=== PATIENT | female | born 1995 | race Hispanic/Latino ===

== ENCOUNTER 2021-07-13 08:12 | Outpatient (CLI) | payer OTHER ==
[2021-07-13 09:44] LABS: SARS-CoV-2 NAA Rapid Test Not Detected (NotDetected)
== END 2021-07-13 08:13 | disposition home or self-care (01) ==
LOC: CSHLAB 08:12
PROVIDERS: ATTEND Family Medicine
DX: Z20.822 Contact with and (suspected) exposure to COVID-19 (principal)
CPT/HCPCS: U0002

== ENCOUNTER 2021-07-14 14:21 | Inpatient (IN) | payer OTHER ==
[2021-07-16] MEDS ORDERED: Bupivacaine 0.25% HCL 30 ML VIAL ONE (07:00)
[2021-07-16] MEDS: Lactated Ringer's 1,000 ML IV SCH (21:40)
[2021-07-16] MEDS ORDERED: Misoprostol 100 MCG TAB ONE (22:13)
[2021-07-16] MEDS ORDERED: Penicillin G Potassium 5 MILL.UNITS VIAL ONE (22:13)
[2021-07-16 22:14] VITALS: BMI 32.5
[2021-07-16] MEDS ORDERED: HYDROcodone/Acetaminophen 5/325 mg Tablet PO PRN (22:18)
[2021-07-16] MEDS ORDERED: Ondansetron PF 4 MG/2 ML Vial IVP PRN (22:18)
[2021-07-16] MEDS ORDERED: NS w/ Oxytocin 30 units 500 ML IV SCH ×2 (22:18)
[2021-07-16] MEDS ORDERED: Carboprost 250 MCG/ML AMP IM PRN (22:18)
[2021-07-16] MEDS ORDERED: Promethazine HCl 25 MG/ML VIAL IM PRN (22:18)
[2021-07-16] MEDS ORDERED: Misoprostol 200 MCG TAB PR PRN (22:18)
[2021-07-16] MEDS ORDERED: Lidocaine 1% (PF) 30 ML VIAL SC PRN (22:18)
[2021-07-16] MEDS ORDERED: Butorphanol Tartrate 1 MG/ML VIAL SLOW IVP PRN (22:18)
[2021-07-16] MEDS ORDERED: Ibuprofen 800 MG TAB PO PRN (22:18)
[2021-07-16] MEDS ORDERED: hydrALAZINE 20 MG/ML VIAL SLOW IVP PRN (22:18)
[2021-07-16] MEDS ORDERED: Acetaminophen 500 MG TAB PO PRN (22:18)
[2021-07-16] MEDS ORDERED: Diphenoxylate HCl/Atropine Tablet PO PRN (22:18)
[2021-07-16] MEDS ORDERED: Methylergonovine 0.2 MG/ML VIAL IM PRN (22:18)
[2021-07-16] MEDS ORDERED: NS w/ Oxytocin 30 units 500 ML IVPB SCH (22:18)
[2021-07-16 22:48] LABS: Hemoglobin 11.5 g/dL (12.0-15.5); Mean Corpuscular HGB CONC 33.5 g/dL (32.0-36.0); Mean Corpuscular Hemoglobin 28.8 pg (27.0-33.0); Platelet Count 226 10x3/uL (150-450); Red Blood Cell (RBC) Count 3.99 10x6/uL (3.90-5.03); White Blood Cell (WBC) Count 8.2 10x3/uL (3.5-10.5)
[2021-07-16 23:19] LABS: Hep B Surf Ag Non-Reactive S/CO (NonReactive); Syphilis Antibody Nonreactive (Nonreactive); Syphilis Antibody Index 0.05 S/CO (<1.00 Non-Reactive)
[2021-07-16 23:30] LABS: HBSAg Index 0.13 S/CO (0-0.99)
[2021-07-17] MEDS ORDERED: Penicillin G Potassium 5 MILL.UNITS in Sodium Chloride 0.9% 100 ML IVPB SCH
[2021-07-17] MEDS: Misoprostol 100 MCG TAB VAG SCH ×4 (01:32→08:15)
[2021-07-17] MEDS: Penicillin G 2.5 MILL.units 2.5 MILL.UNITS in Premix Bag 1 BAG IVPB SCH ×5 (03:40→20:18)
[2021-07-17] MEDS ORDERED: Fentanyl 2 mcg/Bup 0.1% Cadd 100 ML ONE (08:02)
[2021-07-17] MEDS: Lactated Ringer's 1,000 ML IV SCH ×3 (08:16→22:38)
[2021-07-17] MEDS ORDERED: Fentanyl 100 MCG/2 ML VIAL ONE (08:50)
[2021-07-17] MEDS ORDERED: Dextrose 5%-Lactated Ringers 1,000 ML IV SCH (09:00)
[2021-07-17] MEDS ORDERED: Hydrocerin (Eucerin) Cream 120 gm Jar TOP PRN (09:21)
[2021-07-17] MEDS ORDERED: Acetaminophen 325 MG TAB PO PRN (09:21)
[2021-07-17] MEDS ORDERED: Ondansetron PF 4 MG/2 ML Vial IVP PRN (09:21)
[2021-07-17] MEDS ORDERED: ePHEDrine Sulfate 50 MG/10 ML VIAL SLOW IVP PRN (09:21)
[2021-07-17] MEDS ORDERED: Promethazine HCl 25 MG/ML VIAL IM PRN (09:21)
[2021-07-17] MEDS ORDERED: diphenhydrAMINE 50 MG/ML VIAL IVP PRN (09:21)
[2021-07-17] MEDS ORDERED: Lactated Ringer's 500 ML IV PRN (09:21)
[2021-07-17] MEDS ORDERED: Naloxone HCl 0.4 mg/ml Vial IVP PRN ×2 (09:21)
[2021-07-17] MEDS ORDERED: Communication Order-Pharmacy FS PRN (09:30)
[2021-07-17] MEDS ORDERED: Fentanyl 2 mcg/Bupivacaine 0.1% Cassette 100 ML EPIDURAL SCH (09:30)
[2021-07-18] MEDS: Penicillin G 2.5 MILL.units 2.5 MILL.UNITS in Premix Bag 1 BAG IVPB SCH (01:14)
[2021-07-18] MEDS ORDERED: Ondansetron PF 4 MG/2 ML Vial IVP PRN (01:15)
[2021-07-18] MEDS ORDERED: Promethazine HCl 25 MG/ML VIAL IM PRN (01:15)
[2021-07-18] MEDS ORDERED: Lanolin Ointment 7 GM TUBE TOP PRN (01:15)
[2021-07-18] MEDS ORDERED: Boostrix 0.5 ML (Tdap) VIAL IM ONE (01:15)
[2021-07-18] MEDS ORDERED: Benzocaine-Menthol 82.5 ML CAN TOP PRN (01:15)
[2021-07-18] MEDS ORDERED: HYDROcodone/Acetaminophen 5/325 mg Tablet PO PRN (01:15)
[2021-07-18] MEDS ORDERED: Bisacodyl 10 MG SUPP PR PRN (01:15)
[2021-07-18] MEDS ORDERED: diphenhydrAMINE 25 MG CAP PO PRN (01:15)
[2021-07-18] MEDS ORDERED: Preparation H Ointment 28 GM TUBE PR PRN (01:15)
[2021-07-18] MEDS ORDERED: NS w/ Oxytocin 30 units 500 ML IV SCH (01:15)
[2021-07-18] MEDS ORDERED: hydrALAZINE 20 MG/ML VIAL SLOW IVP PRN (01:15)
[2021-07-18] MEDS ORDERED: Milk Of Magnesia 30 ML UDCUP PO PRN (01:15)
[2021-07-18] MEDS: HYDROcodone/Acetaminophen 5/325 mg Tablet PO PRN ×2 (05:36→11:52)
[2021-07-18] MEDS: Ibuprofen 800 MG TAB PO SCH ×3 (06:50→22:07)
[2021-07-18] MEDS: Ferrous Sulfate 325 MG TAB PO SCH ×2 (08:36→17:52)
[2021-07-18] MEDS: Prenatal Vitamin 1 TAB PO SCH (08:37)
[2021-07-18] MEDS: Docusate Calcium (SURFAK) 240 MG CAP PO SCH ×2 (08:37→22:07)
[2021-07-19] MEDS: Ibuprofen 800 MG TAB PO SCH ×2 (06:19→13:35)
[2021-07-19 07:56] VITALS: BP 103/55; TEMP 98.4
[2021-07-19] MEDS: Docusate Calcium (SURFAK) 240 MG CAP PO SCH (08:38)
[2021-07-19] MEDS: Prenatal Vitamin 1 TAB PO SCH (08:38)
[2021-07-19] MEDS: Ferrous Sulfate 325 MG TAB PO SCH (08:39)
== END 2021-07-19 17:46 | disposition home or self-care (01) | DRG 807 ==
LOC: EDSTATUS 16:33 → CSHLD 07-16 20:19 → CSHPP 07-18 01:49
PROVIDERS: ADMIT Family Medicine; ATTEND Family Medicine
PROC: 10E0XZZ Delivery of Products of Conception, External Approach (ICD-10-PCS; principal; 2021-07-16)
PROC: 10907ZC Drainage of Amniotic Fluid, Therapeutic from Products of Conception, Via Natural or Artificial Opening (ICD-10-PCS; 2021-07-16)
PROC: 3E0P7VZ Introduction of Hormone into Female Reproductive, Via Natural or Artificial Opening (ICD-10-PCS; 2021-07-16)
PROC: 3E033VJ Introduction of Other Hormone into Peripheral Vein, Percutaneous Approach (ICD-10-PCS; 2021-07-16)
PROC: 0W8NXZZ Division of Female Perineum, External Approach (ICD-10-PCS; 2021-07-16)
DX: O99.824 Streptococcus B carrier state complicating childbirth (principal); Z37.0 Single live birth; O48.0 Post-term pregnancy; Z3A.40 40 weeks gestation of pregnancy; Z20.822 Contact with and (suspected) exposure to COVID-19
CPT/HCPCS: 36415; 51702; 85027; 86780; 86850; 86900; 86901; 87340; J0595; J1200; J2001; J2405; J2540; J2590; J7120; S0020